=== PATIENT | male | born 1990 | race Caucasian/White ===

== ENCOUNTER 2017-04-23 00:28 | Emergency (ER) | payer OTHER ==
[~2017-04-23] VITALS: Ht 175.3 cm; Wt 61.4 kg
[2017-04-23 00:37] VITALS: BP 116/78; PULSE 56; RESP 16; O2SAT 100
--- NOTE | 2017-04-23 00:44 | ED.REPORT ---
HPI-Abd Pain M Under 40 Date of Service April 23, 2017 ED Provider: Dr. Nelson Pt is a 26 y/o male presenting to the ED c/o right-sided lumbar back pain onset 22:30 tonight. He states that about 1 month ago he "possibly had kidney stones" but wasn't able to have it confirmed. Symptoms were resolved until tonight. He c /o associated nausea. He denies fever, chills, vomiting, diarrhea. Nursing Notes Stated Complaint: RT SIDE BACK PAIN Chief Complaint: Male Abdominal Pain Nursing Notes Reviewed: Yes Allergies: Coded Allergies: No Known Allergies (Unverified , 04/23/17) General Time Seen by MD: 00:44 Chief Complaint Flank pain right Hx Obtained From: Patient Arrived By: Walk-in Sudden in Onset?: Yes Onset Occurred: 1 - 4 hours ago Symptom Duration: Since onset Location: : Flank right Quality: Painful Severity: Current: Moderate Severity: Maximum: Moderate Similar Sx Previous: Yes Past Medical History Past Medical History Possible kidney stones Past Surgical History None reported Smoking History Unknown if Ever Smoker Ambulatory Status Independent Review of Systems Constitutional: Denies: Chills, Fever Respiratory: Denies: Non-productive cough, Shortness of breath Cardiovascular: Denies: Chest pain, Dyspnea on exertion GI: Reports: Nausea, Denies: Abdominal pain, Diarrhea, Vomiting Male: Reports Flank pain Musculoskeletal: Reports: Lumbar pain Complete sys rev & neg: except as marked. Physical Exam Initial Vital Signs Vital Signs (First) Date Time Temp Pulse Resp B/P Pulse Ox O2 Delivery O2 Flow Rate FiO2 04/23/17 00:37 35.9 56 16 116/78 100 Room Air Initial VS: Reviewed, Vital signs normal Head / Eyes: Atraumatic, Normocephalic, PERRL ENT: Mucous membranes moist, Conjunctiva normal, No scleral icterus Neck: Supple, Full range of motion Extremities: Vascular intact, Neuro intact, No swelling, No tenderness Skin: Warm, Dry, No cyanosis Neurologic: Alert, Oriented, Nonfocal Psychiatric: Mood/affect normal, Behavior normal, Normal thought content General/Constitutional: Awake, Alert, No acute distress, Cooperative, Not toxic appearing Respiratory / Chest: Breath sounds NL, Breath sounds = bilat, No respiratory distress, No rales, No rhonchi, No wheezing, No stridor Cardiovascular: Heart rate NL, Regular rhythm, Heart sounds NL, No gallop, No murmurs, No rubs, Cap refill not delayed, Peripheral circulation NL Back: Full range of motion, Painless range of motion Right CVAT Interpretation & Diagnostics Lab Results Interpretation Result Diagram: 04/23/17 0100 04/23/17 0100 Test 04/23/17 01:00 04/23/17 01:45 White Blood Count 14.1th/mm3 (3.8-10.1) Red Blood Count 4.96mil/mm3 (4.40-5.80) Hemoglobin 15.9g/dL (13.8-17.2) Hematocrit 44.0% (41.0-50.0) Mean Corpuscular Volume 88.7fL (81-100) Mean Corpuscular Hemoglobin 32.1pg (27.0-35.0) Mean Corpuscular Hemoglobin Concent 36.1% (32.0-37.0) Red Cell Distribution Width 11.7% (12.3-15.4) Platelet Count 212bil/L (150-400) Neutrophils (%) (Auto) 83.0% (40-74) Lymphocytes (%) (Auto) 11.9% (14-46) Monocytes (%) (Auto) 4.5% (4-12) Eosinophils (%) (Auto) 0.2% (0-5) Basophils (%) (Auto) 0.2% (0-3) Sodium Level 138mEq/L (134-144) Potassium Level 3.6mEq/L (3.5-5.2) Chloride Level 98mEq/L (97-108) Carbon Dioxide Level 24mmol/L (18-29) Blood Urea Nitrogen 15mg/dL (6-20) Creatinine 1.12mg/dL (0.76-1.27) Estimat Glomerular Filtration Rate 86mL/min (>59) Glucose Level 157mg/dL (60-99) Calcium Level 9.5mg/dL (8.5-10.1) Total Bilirubin 0.6mg/dL (0.0-1.2) Aspartate Amino Transf (AST/SGOT) 21U/L (0-50) Alanine Aminotransferase (ALT/SGPT) 15U/L (0-44) Alkaline Phosphatase 84U/L (25-150) Total Protein 7.8g/dL (6.4-8.4) Albumin 4.9g/dL (3.4-5.0) Hold Quintana Top Tube Received (Received) Urine Color Valeria (YELLOW) Urine Appearance Cloudy (CLEAR,HAZY) Urine pH 5.5 (5.0-8.0) Urine Specific Roxana 1.032 (1.003-1.035) Urine Protein 100mg/dL (NEG,TRACE) Urine Glucose (UA) Negativemg/dL (NEGATIVE) Urine Ketones Tracemg/dL (NEGATIVE) Urine Occult Blood Large (NEGATIVE) Urine Nitrite Negative (NEGATIVE) Urine Bilirubin Negative (NEGATIVE) Urine Ictotest Negative (Negative) Urine Urobilinogen Normalmg/dL (NORMAL) Urine Leukocyte Esterase Negative (NEGATIVE) Urine RBC Packed/hpf (0-2) Urine WBC 0-5/hpf (0-5) Urine Epithelial Cells Occasional/hpf (NONE-MOD) Urine Crystals Oxalic acid crystals (NONE Urine Bacteria None/hpf (NONE-FEW) Urine Hyaline Casts None/lpf (NONE) Urine Granular Casts None seen (NONE SEEN) Urine Waxy Casts None seen (NONE SEEN) Urine Red Blood Cell Casts None seen (NONE SEEN) Urine White Blood Cell Casts None seen (NONE SEEN) Urine Mucus Present (None Seen) Urine Trichomonas None seen (NONE SEEN) Urine Yeast None (NONE SEEN) Urine Culture Reflexed Not indicated CT Abd / Pelvis Interpretation Conclusion: Mild right hydronephrosis, with a 2 mm calculus within the proximal ureter. Normal appendix. Diverticulosis with no evidence of diverticulitis Transmitted to the ED by Cristino Sheffield MD at 0208 Study type: Abdominal CT no contrast Interpretation / Wet Read by: Interpret - Radiologist Re-Eval/Medical Decision Med Decision/Clinical Course Mando looked and felt much better after fluids, Toradol and pain medicine. The CT scan shows a right proximal ureteral stone. Otherwise reassuring. Laboratory work shows a leukocytosis without signs of sepsis or urinary tract infection. He felt ready for discharge. He will be placed on a short course of Jackson for the pain. Flomax to assist with passing of the stone as well as Zofran for nausea. Routine opiate medication warnings were given. Urology referral was given as well. Re-Evaluation/Progress : Time of Eval: 02:21 Re-Evaluation/Progress Note: Pt rechecked. Informed pt of plan for treatment. Pt understands and agrees with plan for treatment. F/U instructions and RTER warnings given. All questions addressed. Counseled Regarding: Diagnosis, Lab results, Need for follow-up, When/why to return to ED Patient Discharge & Departure Primary Impression: Right ureteral calculus Disposition: Home Discharge Condition All VS Reviewed: Yes Condition: Stable Patient Instructions: Renal Colic (ED) Additional Instructions: You have a right-sided kidney stone. The kidney stone has a long way to travel so this may take a week or longer. Take 1-2 Jackson every 6 hours as needed for severe pain. Do not drink alcohol, consume acetaminophen, or drive while taking Jackson. Take Flomax daily for 7 days. Stand up slowing while taking Flomax as it can cause lightheadedness with change of position. Return to the emergency department for any new or worsening symptoms. Follow-up with a urologist later this week or early next week for a recheck. Call to schedule an appointment. Referrals: Dick Michelle MD [facility] Scribe Attestation Portions of this note were transcribed by Didier Rowley. I, Dr. Nelson personally performed the history, physical exam and medical decision-making; I reviewed and confirmed the accuracy of the information in the transcribed note. Signed by Raf Minor, 04/23/17 - 0130 copies to: Dick Michelle MD, Todd P DO April 23, 2017 00:44 DIDIER ROWLEY April 23, 2017 01:04
[2017-04-23] MEDS ORDERED: Ondansetron 2 mg/mL 2 mL Inj ONE (00:46)
[2017-04-23] MEDS: 0.9% Sodium Chloride 1,000 ML IV SCH ×2 (01:03→01:35)
[2017-04-23 01:08] LABS: BASOPHILS % (AUTO) 0.2 % (0-3); EOSINOPHILS % (AUTO) 0.2 % (0-5); MONOCYTES % (AUTO) 4.5 % (4-12); Mean Corpuscular Hemoglobin 32.1 pg (27.0-35.0); Mean Corpuscular Volume 88.7 fL (81-100); Platelet Count 212 bil/L (150-400)
[2017-04-23] MEDS ORDERED: HYDROmorphone 0.5 mg/0.5 mL iSecure Syringe IVPUSH PRN (01:10)
[2017-04-23 02:19] LABS: APPEARANCE,URINE CLOUDY (CLEAR,HAZY); COLOR,URINE AMBER (YELLOW); OCCULT BLOOD,URINE LARGE (NEGATIVE); PH,URINE 5.5 (5.0-8.0); UROBILINOGEN,URINE NORMAL (NORMAL)
[2017-04-23 02:20] LABS: ICTOTEST,URINE NEGATIVE (Negative)
[2017-04-23] MEDS ORDERED: _HYDROcodone/APAP 5-325 mg Tablet PO PRN (02:25)
[2017-04-23] MEDS ORDERED: _Ondansetron ODT 4 mg Tablet PO PRN (02:25)
[2017-04-23 02:55] VITALS: BP 112/72; PULSE 60; RESP 16; O2SAT 100
[2017-04-23] MEDS ORDERED: Sodium Chloride LOK Flush 10 mL Syringe IVFLUSH SCH (08:30)
--- NOTE | 2017-04-23 08:48 | DRSVH ---
PROCEDURE: CT ABDOMEN AND PELVIS WITH CONTRAST ([id number]) INDICATIONS: right flank and rlq pain TECHNIQUE: After the administration of intravenous contrast, 5 mm thick sections acquired from the diaphragm to the symphysis. 5 mm coronal and sagittal reformats were acquired. For radiation dose reduction, the following was used: automated exposure control, adjustment of mA and/or kV according to patient siz e. COMPARISON: None. FINDINGS: Image quality: Excellent. ABDOMEN: Lung bases: Lung bases are clear. Heart size is normal. Solid organs: There is periportal edema otherwise liver and spleen are normal in size and enhancement . Gallbladder partially decompressed otherwise unremarkable. Biliary system is non dilated. Pancre as enhances normally. No adrenal nodules. Presumed 5 mm left renal cyst although too small to charac ters definitively. Mild right hydronephrosis related to a 2 mm calculus seen within the proximal righ t ureter image 27 series 2. There is a possible 1 mm calculus in the upper pole right kidney on image 31 series 4 however this could be related to contrast enhancement and technically indeterminate. Fur ther assessment with CT KUB could be performed if clinically needed. No other urolithiasis seen. Peritoneum and bowel: Bowel loops demonstrate normal wall thickness and caliber. No free fluid or a ir. Appendix appears normal. Few scattered uncomplicated diverticula Nodes and vessels: No retroperitoneal or mesenteric adenopathy by size criteria. Aorta and inferior vena cava are normal in size. Miscellaneous: No ventral hernias. PELVIS: Genitourinary: The bladder partially decompressed otherwise unremarkable Miscellaneous: No inguinal hernias or adenopathy. Bones: No suspicious bony lesions. No vertebral body compression fractures. IMPRESSION: Mild right hydronephrosis related to a 2 mm calculus seen in the proximal right ureter. Possible hunter tional 1 mm calculus seen in the upper pole of the right kidney however this could be related to cont rast enhancing vessel and technically indeterminate. If clinically indicated, further investigation w ith noncontrast CT KUB could be performed Normal appendix. Dictated by: Augusto Quach M.D. on 04/23/2017 at 8:33 Approved by: Augusto Quach M.D. on 04/23/2017 at 8:46
== END 2017-04-23 02:56 | disposition home or self-care (01) ==
LOC: SED 00:28
DX: N20.1 Calculus of ureter (principal)
CPT/HCPCS: 36415; 74177; 80053; 81000; 85025; 96374; 96375; 99285; J1885; J2405; J7030; Q9967